=== PATIENT | male | born 2000 | race Caucasian/White ===

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

== ENCOUNTER → 2022-07-23 | Outpatient (CLI) | payer OTHER, SELFPAY ==
[2022-07-30 20:37] LABS: Cotinine Screen Blood <1.0 ng/mL (.); Nicotine Blood <1.0 ng/mL (.)
== END | disposition home or self-care (01) ==
LOC: LABSPEC 11:31
PROVIDERS: Visit Provider Nurse Practitioner Primary Care
DX: Z01.89 Encounter for other specified special examinations (principal)
CPT/HCPCS: 80323; G0480